=== PATIENT | female | born 1965 | race Two or more races ===

== ENCOUNTER 2021-05-02 16:36 | Outpatient (AMBR) | payer MEDICAID, SELFPAY ==
--- NOTE | 2021-04-26 08:50 | PT.OIERPT ---
PT OP Initial Eval Patient Information Visit Reasons: Vertigo Medical Diagnosis: H81.10 Treatment Dx #1: dizziness Start of Care: 04/26/21 Date of Onset: 1 month ago Initial Assessment Subjective Pt is 55 yr old female who reports onset of dizziness x1 month. She has dizziness with getting OOB, standing up from a chair and bending down. Objective R [place]-Hallpike: positive to the L: negative Smooth pursuit: WNL Visual traction: WNL Assessment R side BPPV Pt presentation consistent with BPPV of R posterior canal with positive R tima-hallpike. Her ssx were provoked with [place]-Hallpike testing to the R today. Pt requires skilled therapy to reduce ssx and has good rehab potential with attainable functional improvement. Short Term and Medical Clerical Assistant Goals 1. Ind with HEP 2. Reduced dizziness ssx by 75% with supine to sit transfers 3. Pt will report 50% less onset of dizziness. Treatment Plan 1. Therex 2. Manual therapy including Eppely maneuvers 3. Modalities as indicated Frequency and Duration 2x a week for 6 weeks Certification Dates: 04/26/21 to 07/27/21 Office Procedures PT Procedures PT Date of Service: 04/26/21 OP PT Eval Mod Complex 30 minutes: Yes
--- NOTE | 2021-04-27 17:41 | PTNOTE_ITS ---
PT Outpatient Daily Note Date of Service: 04/27/21 OP Daily Note Visit Reasons: Vertigo Outpatient Physical Therapy Treatment Date: 04/27/21 Subjective: She slept on L side last night and woke up without dizziness today. Objective: See F/S for therex Assessment: Pt was able to do [place]-Hallpike x3 with head to the unaffected side and didn't have onset of ssx today. Plan: Continue per POC Length of Time (minutes) of Treatment: 30 Minutes Office Procedures PT Procedures PT Date of Service: 04/26/21 OP PT Eval Mod Complex 30 minutes: Yes PT Procedures PT Date of Service: 04/27/21 Therapeutic Exercise 30 minutes: Yes
--- NOTE | 2021-05-02 17:29 | PT.ODAYNRPT ---
PT Outpatient Daily Note Date of Service: 05/02/21 OP Daily Note Visit Reasons: Vertigo Outpatient Physical Therapy Treatment Date: 05/02/21 Subjective: She reports one very short feeling of dizziness but overall better with much less ssx Objective: See F/S for therex Assessment: Pt was able to do [place]-Hallpike x2 with head to the unaffected side and didn't have onset of ssx today. Plan: Continue per POC Length of Time (minutes) of Treatment: 30 Minutes Office Procedures PT Procedures PT Date of Service: 05/02/21 Therapeutic Exercise 30 minutes: Yes PT Procedures PT Date of Service: 04/26/21 OP PT Eval Mod Complex 30 minutes: Yes PT Procedures PT Date of Service: 04/27/21 Therapeutic Exercise 30 minutes: Yes
== END 2021-05-17 23:59 | disposition home or self-care (01) ==
PROVIDERS: PCP Nurse Practitioner Primary Care; Referring Provider Nurse Practitioner Primary Care; Visit Provider Nurse Practitioner Primary Care
DX: H81.11 Benign paroxysmal vertigo, right ear (principal)
CPT/HCPCS: 97110; 97162

== ENCOUNTER → 2025-03-10 | Outpatient (CLI) | payer MEDICAID, SELFPAY ==
--- NOTE | 2025-03-10 13:00 | XR_ITS ---
Examination: Screening digital mammography, bilateral Computer aided detection 3-D breast Tomosynthesis, bilateral Date and time of exam: March 10, 2025 1256 hours Compared to mammograms dating to May 14, 2014 Indication: Screening Technique: Nonmagnified MLO, CC views of the breasts to been obtained, reconstructed from 3-D Tomosynthesis images. R2 computer aided detection program utilized for evaluation of suspicious masses and/or abnormal calcifications. 3-D Tomosynthesis images obtained. Findings: The breasts are heterogeneously dense, which may obscure small masses Suspicious for small area of architectural distortion upper outer left breast mid depth Impression: BI-RADS Category 0: Incomplete: Need additional imaging evaluation Recommend follow-up spot tomographic views of small area of possible architectural distortion upper outer left breast as well as left breast sonography to complete the workup.
== END | disposition home or self-care (01) ==
PROVIDERS: PCP Nurse Practitioner Primary Care; Referring Provider Nurse Practitioner Primary Care; Visit Provider Nurse Practitioner Primary Care
DX: Z12.31 Encounter for screening mammogram for malignant neoplasm of breast (principal); R92.333 Mammographic heterogeneous density, bilateral breasts
CPT/HCPCS: 77063; 77067